=== PATIENT | female | born 1990 | race Two or more races ===

== ENCOUNTER 2022-10-01 18:45 | Emergency (ER) | payer OTHER ==
[~2022-10-01] VITALS: Ht 149.9 cm; Wt 88.5 kg
[~2022-10-01 18:45] MED LIST: PERCOCET 5/3251 TAB PO; SEPTRA DS TABLE1 TAB PO; TORADOL60 MG IM
[2022-10-01] MEDS ORDERED: METFORMIN HCL500 MG (19:12)
== END 2022-10-01 23:35 | disposition home or self-care (01) ==
LOC: ER 18:45
DX: R10.9 Unspecified abdominal pain (principal); K57.90 Diverticulosis of intestine, part unspecified, without perforation or abscess without bleeding; E11.9 Type 2 diabetes mellitus without complications; Z79.84 Long term (current) use of oral hypoglycemic drugs